=== PATIENT | female | born 1970 | race African-American/Black ===

== ENCOUNTER 2016-09-18 23:36 | Emergency (ER) | payer MEDICARE, MEDICAID ==
[2016-01-05 10:22] VITALS: BMI 24.3
[~2016-09-18 23:36] MED LIST: FLAGYL250 MG PO; K-DUR20 MEQ PO; LEVAQUIN500 MG PO; MAG-OX 400 MG400 MG PO
[2016-09-19 00:10] LABS: BASOPHILS 0.3 % (0.0-2.0); EOSINOPHILS 0.3 % (0-7); HEMOGLOBIN 13.4 g/dL (12-16); LYMPHOCYTES 33.6 % (15-50); MCH 27.1 pg (26.0-34.0); MCHC 33.5 g/dL (31.0-37.0); MEAN PLATELET VOLUME 9.5 fL (7.4-10.4); MONOCYTES 6.1 % (2-11); NEUTROPHILS 59.7 % (40-80); RBC 4.94 10x6/uL (4.00-5.40); RDW 13.3 % (11.5-14.5)
[2016-09-19 00:12] LABS: PLATELET COUNT 186 10x3/uL (130-400)
[2016-09-19 00:25] LABS: ALBUMIN 4.1 g/dL (3.4-5.0); ALKALINE PHOSPHATASE 64 U/L (46-116); ALT (SGPT) 22 U/L (10-68); BILIRUBIN - TOTAL 0.18 mg/dL (0.2-1.3); CALC OSMOLALITY 277 mosm/kg (275-300); CALCIUM 9.2 mg/dL (8.5-10.1); CARBON DIOXIDE 23.9 mmol/L (21.0-32.0); CHLORIDE - SERUM 105 mmol/L (98-107); CREATININE - SERUM 0.6 mg/dL (0.6-1.3); GLUCOSE 108 mg/dL (74-106); POTASSIUM - SERUM 3.5 mmol/L (3.5-5.1); PROTEIN - SERUM 8.1 g/dL (6.4-8.2); SODIUM 139 mmol/L (136-145); UREA NITROGEN 11 mg/dL (7-18); eGFR NON AFRICAN AMERICAN > 90 mL/min (90-120)
[2016-09-19 00:34] LABS: PRO BNP 5 pg/mL (0-125); TROPONIN-I < 0.017 ng/mL (0.000-0.060)
== END 2016-09-19 00:40 | disposition home or self-care (01) ==
LOC: D.ER 23:36
PROVIDERS: Emergency Medicine
DX: J45.901 Unspecified asthma with (acute) exacerbation (principal)

== ENCOUNTER → 2017-07-26 08:59 | Outpatient (CLI) | payer MEDICARE, MEDICAID ==
[2016-01-05 10:22] VITALS: BMI 24.3
== END | disposition home or self-care (01) ==
LOC: D.MRI 08:59
DX: M25.562 Pain in left knee (principal)